=== PATIENT | female | born 1990 | race Caucasian/White ===

== ENCOUNTER 2022-07-06 19:37 | Emergency (ER) | payer OTHER, SELFPAY ==
[2022-07-06 19:38] VITALS: BP 131/86; PULSE 142; RESP 18; TEMP 37; O2SAT 94; BMI 32.2
[2022-07-06 20:00] VITALS: BMI 32.8
--- NOTE | 2022-07-06 20:09 | CT_ITS ---
INDICATION: Headache EXAMINATION: CT BRAIN - CT Head or Brain W/O Contrast Injection TECHNIQUE: Multiple axial images were obtained of the head without intravenous contrast. A radiation dose optimization technique was used for this scan. IV Contrast dosage and agent: None. RADIATION DOSAGE (If Supplied By Facility): CTDIvol = ( 47.06 ) mGy, DLP = ( 960.91 ) mGycm COMPARISON: None FINDINGS: BRAIN PARENCHYMA: No intra- or extra-axial hemorrhage. No evidence of acute infarct. No intracranial mass or mass effect. There is preservation of the corbin/white matter interface. Posterior fossa structures are unremarkable. CSF SPACES: Appropriate for age. No hydrocephalus. Basal cisterns are patent. CALVARIUM, SKULL BASE, PARANASAL SINUSES AND MASTOID AIR CELLS: Bilateral paranasal sinus mucosal thickening and effusions. No discrete lytic or blastic abnormalities. ORBITS: Both globes, extraocular muscles, optic nerves and retrobulbar fat appear unremarkable. ASPECTS Score for Acute Strokes: 10 CT/Brain/Head without Contrast IMPRESSION: Sinusitis. No acute abnormal intracranial finding. Electronically Signed: Jose Miguel Jameson MD at 21:19 EDT ,
[2022-07-06 20:28] LABS: Absolute Lymphocyte Count 1.17 X10^3/uL (0.83-4.51); Absolute Neutrophil Count 7.4 X10^3/uL (2.0-7.7); Basophil# 0.02 X10^3/uL; Basophil% 0.2 % (0-1); Hematocrit 33.7 % (37-47); Lymphocyte # 1.17 X10^3/ul (0.83-4.51); Lymphocyte % 12.4 % (19-41); Mean Corp Hgb Conc 32.6 g/dL (32-36); Mean Corpuscular Hgb 27.5 pg (27.0-32.0); Mean Corpuscular Volume 84.3 fL (81-99); Mean Platelet Vol. 11.1 fl (6.2-12.0); Monocyte# 0.77 X10^3/uL; Monocyte% 8.2 % (0-10); NRBC Flagged by Analyzer 0 % (0-5); Neutrophil # 7.43 X10^3/uL (2.7-7.7); Neutrophil % 78.9 % (47-70); Platelet Count 247 K/mm3 (150-450); RBC Distribution Width CV 12.5 % (11.6-14.6); White Blood Count 9.4 K/mm3 (4.4-11.0)
[2022-07-06] MEDS: 0.9% Normal Saline 1,000 ML 1000 ML IV (20:35)
[2022-07-06] MEDS: Metoclopramide 10 MG/2 ML Vial IV (20:35)
[2022-07-06] MEDS: DiphenhydrAMINE 50 MG/ML Syringe 25 MG IV (20:35)
[2022-07-06] MEDS: Fluorescein 1 MG STRIP 1 STRIP OPHTHALMIC (20:36)
[2022-07-06] MEDS: Tetracaine 0.5% Ophthalmic Bottle 1 DRP OPHTHALMIC (20:36)
[2022-07-06 20:43] LABS: Anion Gap 3 (5-15); BUN 11 mg/dL (7-18); BUN/Creat Ratio 14.8 RATIO (10-20); Calcium,Total 9.2 mg/dL (8.5-10.1); Chloride 102 mmol/L (98-107); Creatinine, Serum 0.74 mg/dL (0.55-1.02); EST Glomerular Filtration Rate 97 mL/min (>60); Est Glom Filt Rate - Afr Amer 117 mL/min (>60); Glucose 104 mg/dL (74-106); Potassium 3.6 mmol/L (3.5-5.1); Sodium Level 131 mmol/L (136-145)
[2022-07-06 21:01] LABS: Erythrocyte Sedimentation Rate 89 mm/hr (0-30)
--- NOTE | 2022-07-06 21:15 | EDS_ITS ---
HPI History of Present Illness Chief Complaint: Headache Informant: patient Onset/Context/Timing Onset: Days (2) Context: Sudden Timing: Continuous Quality -Headache: Positive for Sharp Location: Left frontal/parietal Worsened by: Nothing Relieved by: Ibuprofen Associated Symptoms/Injury Associated Symptoms: Positive for Fever; Negative for Nausea, Vomiting, Sore Throat, Sinus Pressure, Numbness, Tingling, Preceding Aura, Visual Changes, Blurred Vision, Photophobia or Visual Loss Injury - DOZIER: Negative for Direct Trauma, Fall or Assault Narrative Narrative: Patient presents with a headache that began 2 days ago. Patient states it began rather suddenly. Patient states it has been constant. Patient describes it as sharp. Patient states it is over the left frontal parietal area. Patient states she has been taking ibuprofen which has been helping. Patient states nothing makes it worse. Patient admits to a fever of 101.5 at home. Patient denies any nausea or vomiting. Patient denies any paresthesias or weakness. Patient admits to some blurred vision but denies any photophobia or scotoma. Patient denies any trauma or injury. [facility] Medical History Infertility Home Medications clomiphene citrate 50 mg tablet (Clomid) mg 07/06/22 [History Last Taken Unknown] doxycycline monohydrate 100 mg capsule 100 mg PO BID #20 CAPSULES 07/06/22 [Rx Last Taken Unknown] erythromycin 500 mg tablet PO 07/06/22 [History Last Taken Unknown] progesterone micronized 07/06/22 [History Last Taken Unknown] Allergy/AdvReac Type Severity Reaction Status Date / Time Penicillins Allergy Rash Verified 07/06/22 19:41 Family History no significant family his Surgical History H/O hernia repair Social History Smoking Status: Never smoker ROS ROS ED Constitutional Constitutional ED: Reports fever(s); Denies chills Eyes Eyes: Reports blurry vision; Denies diplopia ENT ENT ED: Denies rhinorrhea or sore throat Cardiovascular Cardiovascular: Denies chest pain or palpitations Respiratory/Chest Respiratory/Chest: Reports cough; Denies dyspnea Gastrointestinal Gastrointestinal: Denies nausea or vomiting Genitourinary Genitourinary ED: Denies dysuria or hematuria Musculoskeletal Musculoskeletal: Reports back pain; Denies neck pain Integumentary Denies abscess or rash Neurologic Neurologic: Reports headache(s); Denies weakness Allergic/Immunologic Allergic/Immunologic ED: Denies mouth swelling or urticaria EXAM Physical Exam Const Vital Signs: 07/06/22 19:38 Temperature 98.6 F Temperature Source Temporal Pulse Rate 142 H Respiratory Rate 18 Blood Pressure 131/86 H Blood Pressure Mean 101 Pulse Ox 94 Oxygen Delivery Method Room Air Positive well nourished and well developed General Appearance ED: well developed HEENT Reports normocephalic and moist mucous membranes HEENT Narrative: There is mild tenderness over the left frontal/parietal area. There is no bony crepitance or step-off. There is no edema or erythema noted. atraumatic; Negative for temporal artery tenderness Neck supple and no JVD Resp normal respiratory effort and clear to auscultation bilaterally Cardio regular rate, regular rhythm and no murmurs GI normal to inspection, nondistended, normoactive bowel sounds and non-tender Palpation: soft Extremity normal to inspection General Extremety ED: Negative for edema or tenderness General Extremity: Negative for edema Neuro oriented x3, CN's II-XII intact bilaterally and no sensory deficits noted Sensorium / Orientation: alert Motor Exam: strength 5/5 throughout Psych mental status grossly normal Skin no rashes or lesions noted MDM MDM MDM Narrative Medical decision making narrative: Differential diagnosis includes conjunctivitis, shingles, intracranial bleeding, temporal arteritis, migraine headache, and temporal headache. CT scan of the brain needed obtained to assess for intracranial bleeding. CBC will be obtained to assess for anemia and leukocytosis. Sed rate will be obtained to assess for temporal arteritis. Basic metabolic profile will be obtained to assess for electrolyte abnormality and renal function. Lab Data Attestation: I reviewed the patient's lab results. Lab results narrative: CBC was reviewed. There is a mild anemia with a hemoglobin of 11.0 hematocrit 33.7. Basic metabolic profile showed a mild hyponatremia of 131. Sed rate was implemented and was elevated at 809. Labs: Laboratory Results - last 24 hr 07/06/22 07/06/22 20:00 20:00 WBC 9.4 RBC 4.00 L Hgb 11.0 L Hct 33.7 L MCV 84.3 MCH 27.5 MCHC 32.6 RDW Std Deviation 38.0 RDW Coeff of Jaden 12.5 Plt Count 247 MPV 11.1 Immature Gran % (Auto) 0.300 Neut % (Auto) 78.9 H Lymph % (Auto) 12.4 L [place] % (Auto) 8.2 Eos % (Auto) 0.0 Baso % (Auto) 0.2 Absolute Neuts (auto) 7.4 Absolute Lymphs (auto) 1.17 Nucleated RBC % 0 ESR 89 H Sodium 131 L Potassium 3.6 Chloride 102 Carbon Dioxide 26.0 Anion Gap 3 L BUN 11 Creatinine 0.74 Estim Creat Clear Calc 108.10 Est GFR (MDRD) Af Amer 117 Est GFR (MDRD) Non-Af 97 BUN/Creatinine Ratio 14.8 Glucose 104 Calcium 9.2 Radiography Diagnostic Testing: Clinical Impression(s) from Imaging Studies Brain CT 07/06/22 20:09 IMPRESSION: Sinusitis. No acute abnormal intracranial finding. Electronically Signed: Jose Miguel Jameson MD at 21:19 EDT , CT scan of the brain was obtained. There is evidence of sinusitis. There is no acute intracranial finding. There is no evidence of orbital cellulitis or periorbital cellulitis. This was interpreted by the radiologist and was also independently reviewed by myself. Treatment and Re-Evaluation Narrative: Patient was given IV fluids, Reglan, and Benadryl. Patient is feeling better on reevaluation. Given the elevated sed rate, I discussed the case with Dr. Judd who is on-call for ophthalmology. She does not feel that the sed rate is elevated due to a temporal arteritis. Patient will be instructed to stop the erythromycin. Patient was given a prescription for doxycycline. Patient was instructed to drink plenty of fluids. Patient was instructed to take Tylenol or ibuprofen as needed for pain. Patient understands and is agreeable with the plan. All questions were answered. Discharge Plan Triage Chief Complaint: Headache ED Provider: Octavio Barrera Dx/Rx/DC Orders Clinical Impression: Headache, Sinusitis Instructions: ED Headache Unspecified, ED Sinusitis (Antibiotic Treatment) Prescriptions: New doxycycline monohydrate 100 mg capsule 100 mg PO BID Qty: 20 0RF No Action progesterone micronized erythromycin 500 mg tablet PO Label Comments: take 1 tablet by mouth twice a day for 7 days clomiphene citrate [Clomid] 50 mg tablet Label Comments: TAKE 1 TABLET BY MOUTH ONCE DAILY FOR 5 DAYS. START ON DAY 3 AND END ON DAY 7. Primary Care Provider: Cooper Bobo Referrals: Cooper Bobo MD [Primary Care Provider] - 5-7 Days Disposition Disposition: Home, Self Care
[2022-07-06 21:47] VITALS: RESP 18
[2022-07-06] MEDS: Doxycycline 100 MG CAPSULE PO (21:55)
[2022-07-06 22:00] VITALS: RESP 18
== END 2022-07-06 22:12 | disposition home or self-care (01) ==
PROVIDERS: Emergency Provider Emergency Medicine; PCP Family Medicine; Visit Provider Emergency Medicine
DX: R50.9 Fever, unspecified (principal); R51.9 Headache, unspecified; J32.9 Chronic sinusitis, unspecified
CPT/HCPCS: 70450; 80048; 85025; 85652; 99284; J7030; A4216